=== PATIENT | female | born 1950 | race Caucasian/White ===

== ENCOUNTER 2017-01-07 01:38 | Emergency (ER) | payer MEDICARE, OTHER ==
[~2017-01-07] VITALS: Ht 160 cm; Wt 77.5 kg
[2017-01-07 01:46] VITALS: Ht 160 cm; Wt 77.5 kg
[2017-01-07] MEDS ORDERED: NPH10OT RIGHT EAR (02:37)
[2017-01-07] MEDS ORDERED: ACET325T33 PO (02:38)
--- NOTE | 2017-01-07 03:08 | ERA ---
ER Documentation Chief Complaint Date/Time DATE: 01/07/17 TIME: 03:03 Chief Complaint right ear pain, right knee pain- denies injury HPI This is a 66-year-old female with history of arthritis presenting complaining of bilateral knee pain that is worse with walking. Patient has taken ibuprofen with moderate relief. Patient has no other complaints and describes no other associated manifestations. Patient is also complaining of right ear pain that is worse when touching it. Patient denies history of trauma, change/loss of hearing, tinnitus, headache, dizziness, veronica-auricular pain, or neck stiffness. Patient has not done anything to relieve the symptoms at this time. ROS All systems reviewed and are negative except as per history of present illness. Medications Home Meds Active Scripts Acetaminophen* (Tylenol*) 325 Mg Tablet, 1 TAB PO Q8 Y for PAIN AND OR ELEVATED TEMP, #20 TAB Prov:TANA BARNEY PA-C 01/07/17 Neomycin/Polymyxin/Hydrocort* (Cortisporin* Otic) 10 Ml Susp, 4 DROP RIGHT EAR QID for 7 Days, EA Prov:TANA BARNEY PA-C 01/07/17 Allergies Allergies: Coded Allergies: No Known Allergy (Unverified , 01/07/17) PMhx/Soc History of Surgery: No Anesthesia Reaction: No Hx Neurological Disorder: No Hx Respiratory Disorders: No Hx Cardiac Disorders: No Hx Psychiatric Problems: No Hx Miscellaneous Medical Probl: No Hx Alcohol Use: No Hx Substance Use: No Hx Tobacco Use: No Smoking Status: Never smoker Physical Exam Vitals Vital Signs Date Time Temp Pulse Resp B/P Pulse Ox O2 Delivery O2 Flow Rate FiO2 01/07/17 01:46 98.2 60 20 172/77 100 Physical Exam Const: Old 66-year-old female and a wheelchair on initial presentation in no acute distress Head: Atraumatic Eyes: Normal Conjunctiva ENT: Right antihelix mildly erythematous. No warmth to touch. Mild tenderness to palpation. No discharge or marked swelling noted. No streaking. External ear canals clear and tympanic membranes visualized with good light cone reflex visualized bilaterally. Normal Nose and Mouth. Neck: Full range of motion..~ No meningismus. Resp: Clear to auscultation bilaterally Cardio: Regular rate and rhythm, no murmurs Abd: Soft, non tender, non distended. Normal bowel sounds Skin: No petechiae or rashes Back: No midline or flank tenderness Ext: Full range of motion and no pain with passive range of motion. Pain and limited range of motion secondary to pain with active range of motion. With no cyanosis, or edema Neur: Awake and alert Psych: Normal Mood and Affect Procedures/MDM Patient was evaluated for right ear discomfort presenting as described in the history and physical exam. Patient refused pain medications in the emergency department. The patients signs and symptoms are most consistent with otitis externa of left ear and chronic osteoarthritis of the knees bilaterally. The treatment will thus include outpatient Ciprodex for the ear and acetaminophen for the knees. At this time I do not suspect malignant otitis externa, hearing loss, intracranial pathology, foreign body, meningitis; septic joint, neurovascular compromise or other serious bacterial infections. I have spoke with the patient regarding their condition and future management. They have verbally responded that they understand their status and treatment plan. The patient is well-appearing, vitals are stable, and their current condition is appropriate for discharge. The patient will be given discharge instructions with return precautions. Departure Diagnosis: Primary Impression: Otitis externa of right ear Qualified Code: H60.391 - Other infective acute otitis externa of right ear Additional Impression: Arthritis Condition: Stable Patient Instructions: External Ear Infection (Adult) Additional Instructions: Follow up with your PCP within the next 1-3 days for a more thorough evaluation and a possible referral to a specialist. Return the the emergency department immediately if symptoms worsen or change. If you have any questions regarding medications, ask your pharmacist or us before you leave. If any adverse reactions occur while taking your medications, discontinue the treatment and return to the emergency department immediately. Take your medications as directed, and complete the entire course of treatment. TANA BARNEY PA-C Jan 07, 2017 03:08
== END 2017-01-07 03:21 | disposition home or self-care (01) ==
LOC: FTE 01:38
DX: H60.391 Other infective otitis externa, right ear (principal); M19.90 Unspecified osteoarthritis, unspecified site
CPT/HCPCS: 99283

== ENCOUNTER 2018-05-10 02:15 | Observation (INO) | END 2018-05-10 15:47 | disposition home or self-care (01) ==

== ENCOUNTER 2018-08-18 07:45 | Inpatient (IN) | payer MEDICARE, BC ==
[~2018-08-18] VITALS: Ht 160 cm; Wt 87.9 kg
[2018-08-18] VITALS (8 sets, daily range): BP systolic 126–141; BP diastolic 61–67; PULSE 62–84; RESP 14–20; Ht 160 cm; Wt 87.9 kg
[~2018-08-18 07:45] MED LIST: AMLO2.5T78 PO; ASPI-817 PO; HYDR12.58 PO; LORA10TA3 PO; METO25TA4 PO; NAPR-985 PO
[2018-08-18] MEDS ORDERED: SOD CHLORIDE 0.9% 500 ML IV STA (07:54)
--- NOTE | 2018-08-18 07:54 | ERD ---
ER Documentation Chief Complaint Chief Complaint HPI 68-year-old woman brought in by EMS for palpitations and tachycardia, patient is unable to tell me if she has a history of cardiac dysrhythmia. Patient complains of palpitations and discomfort to the chest, she has had no fevers or chills, no vomiting, no LOC. HPI supplemented by reviewing past medical history, speaking to EMS, and nursing staff. ROS All systems reviewed and are negative except as per history of present illness. Medications Home Meds Reported Medications Metformin* (Glucophage*) 500 Mg Tab, 500 MG PO WITH BREAKFAST DINNE, #30 TAB 08/19/18 Metoprolol Tartrate* (Lopressor*) 25 Mg Tablet, 25 MG PO BID, #60 TAB 05/10/18 Aspirin* (Aspirin* EC) 81 Mg Tablet.dr, 81 MG PO DAILY, TAB 05/10/18 Naproxen* (Naprosyn*) 500 Mg Tablet, 500 MG PO BID, TAB 05/10/18 Loratadine* (Loratadine*) 10 Mg Tablet, 10 MG PO DAILY, #30 TAB 05/10/18 Hydrochlorothiazide* (Hydrochlorothiazide*) 12.5 Mg Tablet, 12.5 MG PO BID, #60 TAB 05/10/18 Amlodipine Besylate* (Amlodipine Besylate*) 2.5 Mg Tablet, 2.5 MG PO QAM, #30 TAB 05/10/18 Allergies Allergies: Coded Allergies: No Known Allergy (Unverified , 01/07/17) PMhx/Soc CAD, CABG, hypertension, obesity, dementia, psychiatric disorder Anesthesia Reaction: No Hx Neurological Disorder: No Hx Respiratory Disorders: No Hx Cardiac Disorders: Yes (HTN ) Hx Psychiatric Problems: No Hx Miscellaneous Medical Probl: No Hx Alcohol Use: No Hx Substance Use: No Hx Tobacco Use: No FmHx Family History: No diabetes Physical Exam Vitals Vital Signs Date Temp Pulse Resp B/P (MAP) Pulse Ox O2 O2 Flow FiO2 Time Delivery Rate 08/18/18 Nasal 2 08:10 Cannula 08/18/18 98.0 165 18 116/93 99 07:53 (101) Physical Exam GENERAL: Elderly, chronically debilitated appearing woman, appears demented, afebrile HEENT: Moist mucous membranes, pink conjunctiva, no cervical spine tenderness or step-off deformities, no goiter NEURO: Alert and oriented x1, moving all extremities, able to answer simple questions and follow simple commands, pupils equal round reactive to light CARDIAC: Tachycardic and regular no murmurs rubs or gallops LUNGS: Clear bilaterally no wheezing crackles or stridor ABDOMEN: Soft nontender, no guarding, no rigidity, no rebound, no psoas sign no obturator sign. SKIN: Warm and dry to touch, no abrasions, contusions, or hematomas, no lacerations, no ecchymosis, no target lesions, and without ulcers EXTREMITIES: No clubbing cyanosis or edema, calves are bilaterally symmetrical, no Homans sign, no popliteal cord sign. Distal pulses equal and bilateral PSYCH: Bizarre affect, inappropriate Result Diagram: 08/19/1860508/19/18605 Results 24 hrs Laboratory Tests Test 08/18/18 07:57 White Blood Count 10.5 10^3/ul Red Blood Count 4.81 10^6/ul Hemoglobin 14.7 g/dl Hematocrit 42.7 % Mean Corpuscular Volume 88.8 fl Mean Corpuscular Hemoglobin 30.6 pg Mean Corpuscular Hemoglobin Concent 34.4 g/dl Red Cell Distribution Width 11.9 % Platelet Count 364 10^3/UL Mean Platelet Volume 10.9 fl Immature Granulocytes % 0.400 % Neutrophils % 54.2 % Lymphocytes % 36.5 % Monocytes % 7.8 % Eosinophils % 0.6 % Basophils % 0.5 % Nucleated Red Blood Cells % 0.0 /100WBC Immature Granulocytes # 0.040 10^3/ul Neutrophils # 5.7 10^3/ul Lymphocytes # 3.8 10^3/ul Monocytes # 0.8 10^3/ul Eosinophils # 0.1 10^3/ul Basophils # 0.1 10^3/ul Nucleated Red Blood Cells # 0.0 10^3/ul Prothrombin Time 11.7 Sec Prothrombin Time Ratio 0.9 INR International Normalized Ratio 0.85 Activated Partial Thromboplast Time 27.0 Sec Sodium Level 135 mmol/L Potassium Level 4.3 mmol/L Chloride Level 98 mmol/L Carbon Dioxide Level 21 mmol/L Anion Gap 16 Blood Urea Nitrogen 13 mg/dl Creatinine 0.58 mg/dl Est Glomerular Filtrat Rate mL/min > 60 mL/min Glucose Level 287 mg/dl Calcium Level 9.1 mg/dl Total Bilirubin 0.3 mg/dl Direct Bilirubin 0.00 mg/dl Indirect Bilirubin 0.3 mg/dl Aspartate Amino Transf (AST/SGOT) 44 IU/L Alanine Aminotransferase (ALT/SGPT) 34 IU/L Alkaline Phosphatase 125 IU/L Troponin I 0.022 ng/ml B-Type Natriuretic Peptide 683 PG/ML Total Protein 8.4 g/dl Albumin 4.2 g/dl Globulin 4.20 g/dl Albumin/Globulin Ratio 1.00 Lipase 154 U/L Current Medications Medications Dose Sig/Rajeev Start Time Status Last (Trade) Ordered Route PRN Stop Time Admin Dose Reason Admin Diltiazem 20 mg ONCE ONCE 08/18/18 DC 08/18/18 HCl IV 08:00 08/18/18 08:07 (Cardizem Iv) 08:01 Sodium 500 ml @ Q1H STAT 08/18/18 DC 08/18/18 Chloride 500 mls/hr IV 07:54 08/18/18 08:07 08:53 Aspirin 325 mg ONCE ONCE 08/18/18 DC (Aspirin) PO 08:00 08/18/18 08:01 Diltiazem 20 mg ONCE ONCE 08/18/18 DC 08/18/18 HCl IV 08:30 08/18/18 08:48 (Cardizem Iv) 08:31 Sodium 1,000 ml @ Q1H ONCE 08/18/18 DC 08/18/18 Chloride 1,000 mls/hr IV 09:00 08/18/18 08:49 09:59 Procedures/MDM IV line was established patient was placed on bus driver/monitor rhythm strip revealed a narrow complex tachycardia at 160 bpm with upright P and T waves. Patient was afebrile EKG performed, read by me revealed an atrial fibrillation with rapid ventricular rate at 164 bpm, normal axis, narrow QRS complex, no concerning ST elevations noted but ST depressions in all leads consistent with old EKG. Patient received diltiazem 20 mg IV followed by another 10 mg IV bolus for A. fib with RVR. 1 view chest x-ray performed, read by me revealed sternotomy wires, no acute infiltrates, no pneumothorax otherwise unremarkable chest x-ray. Repeat EKG performed, read by me revealed a normal sinus rhythm at 81 bpm, normal axis, narrow QRS complex, no concerning ST elevations or depressions noted. Critical Care: Time: 45 minutes, this was time separate from other billable procedures. Treatments/Evaluations: Close monitoring and treatment of unstable vital signs, cardiorespiratory, and neurologic status, while maintaining tight balance of fluid, respiratory, and cardiac interventions. Patient also received 1 L normal saline IV and was already given a full dose of aspirin by EMS. CBC and electrolytes were unremarkable, liver function tests normal, troponin negative, blood sugar slightly elevated. Patient will be admitted to telemetry setting for continued medical management and cardiology consultation. Departure Diagnosis: Primary Impression: Atrial fibrillation with RVR Condition: RENARD Khan MD Aug 18, 2018 07:54
[2018-08-18] MEDS ORDERED: DILTIAZEM 25 MG INJ IV ONE ×2 (08:00→08:30)
[2018-08-18] MEDS ORDERED: ASPIRIN 325 MG TAB PO ONE (08:00)
[2018-08-18] MEDS ORDERED: SOD CHLORIDE 0.9% 1,000 ML IV ONE (09:00)
[2018-08-18] MEDS ORDERED: DOCUSATE SODIUM 100 MG CAP PO PRN (11:30)
[2018-08-18] MEDS ORDERED: GLUCAGON 1 MG INJ IM PRN (11:30)
[2018-08-18] MEDS ORDERED: DEXTROSE 50% 50 ML SYRINGE IV PRN ×2 (11:30)
[2018-08-18] MEDS ORDERED: GLUCOSE GEL 15 GRAM TUBE BUCCAL PRN (11:30)
[2018-08-18] MEDS ORDERED: ACETAMINOPHEN 325 MG TAB PO PRN (11:30)
[2018-08-18] MEDS ORDERED: morphine 2 MG INJ IV PRN (11:30)
[2018-08-18] MEDS ORDERED: NACL 0.9% 3 ML SYG IV SCH (11:30)
[2018-08-18] MEDS ORDERED: ONDANSETRON 4 MG INJ IV PRN (11:30)
[2018-08-18] MEDS ORDERED: HYDROCODONE/APAP (5/325) TAB PO PRN (11:30)
[2018-08-18] MEDS ORDERED: ZOLPIDEM 5 MG TAB PO PRN (11:30)
[2018-08-18] MEDS ORDERED: GLUCOSE GEL 15 GRAM TUBE PO PRN ×2 (11:30)
[2018-08-18] MEDS: AMLODIPINE 2.5 MG TAB PO SCH (11:39)
[2018-08-18] MEDS: METOPROLOL 25 MG TAB PO SCH ×2 (11:39→19:49)
[2018-08-18] MEDS: LORATADINE 10 MG TAB PO SCH (11:39)
[2018-08-18] MEDS: INSULIN ASPART [NOVOLOG] 3 ML PEN SC SCH ×3 (11:50→19:59)
--- NOTE | 2018-08-18 11:53 | HP ---
Date/Time of Note Date/Time of Note DATE: 08/18/18 TIME: 11:47 Assessment/Plan VTE Prophylaxis Pharmacological prophylaxis: LMWH Lines/Catheters IV C[facility]ter Type (from [facility]): [place] [facility] Assessment/Plan Hospital Course 1. Paroxysmal A. fib with RVR-patient now in sinus rhythm Patient is status post diltiazem in the ER Patient unaware of any prior episodes of arrhythmia Cardiac consultation obtained, defer initiation of anticoagulation to cardiology 2. Diabetes Sugars currently elevated Lantus and sliding scale Follow-up an A1c 3. History of coronary disease Continue cardiac meds 4. Hypertension Continue home Prophylaxis: Lovenox Result Diagram: 08/18/18 0757 08/18/18 0757 Results 24hrs Laboratory Tests Test 08/18/18 07:57 White Blood Count 10.5 # Red Blood Count 4.81 Hemoglobin 14.7 Hematocrit 42.7 Mean Corpuscular Volume 88.8 Mean Corpuscular Hemoglobin 30.6 Mean Corpuscular Hemoglobin Concent 34.4 Red Cell Distribution Width 11.9 Platelet Count 364 Mean Platelet Volume 10.9 H Immature Granulocytes % 0.400 Neutrophils % 54.2 Lymphocytes % 36.5 Monocytes % 7.8 Eosinophils % 0.6 Basophils % 0.5 Nucleated Red Blood Cells % 0.0 Immature Granulocytes # 0.040 H Neutrophils # 5.7 Lymphocytes # 3.8 H Monocytes # 0.8 Eosinophils # 0.1 Basophils # 0.1 Nucleated Red Blood Cells # 0.0 Prothrombin Time 11.7 L Prothrombin Time Ratio 0.9 INR International Normalized Ratio 0.85 Activated Partial Thromboplast Time 27.0 Sodium Level 135 Potassium Level 4.3 Chloride Level 98 Carbon Dioxide Level 21 Anion Gap 16 H Blood Urea Nitrogen 13 Creatinine 0.58 Est Glomerular Filtrat Rate mL/min > 60 Glucose Level 287 H Calcium Level 9.1 Total Bilirubin 0.3 Direct Bilirubin 0.00 Indirect Bilirubin 0.3 Aspartate Amino Transf (AST/SGOT) 44 Alanine Aminotransferase (ALT/SGPT) 34 Alkaline Phosphatase 125 H Troponin I 0.022 B-Type Natriuretic Peptide 683 H Total Protein 8.4 H Albumin 4.2 Globulin 4.20 H Albumin/Globulin Ratio 1.00 Lipase 154 HPI/ROS Admit Date/Time Admit Date/Time Aug 18, 2018 at 09:00 Hx of Present Illness Patient is a 68-year-old female with history of coronary disease status post CABG, hypertension, diabetes likely psychiatric disorder who presents with chest and back discomfort. In the ER patient was noted to be in A. fib with RVR, patient did receive diltiazem and did did convert to sinus rhythm. Patient is unaware of any prior history of arrhythmia currently has no complaints. ROS Constitutional: no complaints, improved Eyes: no complaints ENT: no complaints Respiratory: no complaints Cardiovascular: no complaints Gastrointestinal: no complaints Genitourinary: no complaints Musculoskeletal: no complaints Skin: no complaints Neurologic: no complaints Endocrine: no complaints Lymphatic: no complaints Psychological: no complaints, nl mood/affect Immunologic: no complaints PMH/Family/Social Past Medical History As per HPI Medications Current Medications IV Flush (NS 3 ml) 3 ml PER PROTOCOL IV ; Start 08/18/18 at 11:30 Ondansetron HCl (Zofran Inj) 4 mg Q6H PRN IV NAUSEA/VOMITING; Start 08/18/18 at 11:30 Acetaminophen (Tylenol Tab) 650 mg Q6H PRN PO .PAIN 1-3 OR TEMP; Start 08/18/18 at 11:30 Acetaminophen/ Hydrocodone Bitart ([place] (5/325)) 1 tab Q6H PRN PO .MOD PAIN 4- 6; Start 08/18/18 at 11:30 Morphine Sulfate (morphine) 2 mg Q4H PRN IV .SEVERE PAIN 7-10; Start 08/18/18 at 11:30 Docusate Sodium (Colace) 100 mg Q12H PRN PO .CONSTIPATION; Start 08/18/18 at 11:30 Zolpidem Tartrate (Ambien) 5 mg QHS PRN PO .INSOMNIA; Start 08/18/18 at 11:30 Enoxaparin Sodium (Lovenox) 40 mg DAILY SC ; Start 08/19/18 at 09:00 Amlodipine Besylate (Norvasc) 2.5 mg QAM PO ; Start 08/18/18 at 11:30 Aspirin (Halfprin) 81 mg DAILY PO ; Start 08/19/18 at 09:00 Hydrochlorothiazide (Hydrochlorothiazide) 12.5 mg BID DIURETICS PO ; Start 08/18/18 at 18:00 Loratadine (Claritin) 10 mg DAILY PO ; Start 08/18/18 at 11:30 Metoprolol Tartrate (Lopressor) 25 mg BID PO ; Start 08/18/18 at 11:30 Naproxen (Naprosyn) 500 mg BID WITH MEALS PO ; Start 08/18/18 at 17:55 Diagnostic Test (Pha) (Accu-Chek) 1 ea 02 XX ; Start 08/19/18 at 02:00 Insulin Aspart (Novolog Insulin Pen) NOVOLOG *MILD* ALGORITHM WITH MEALS BEDTIME SC ; Start 08/18/18 at 11:50 Insulin Glargine (Lantus) 12 units DAILY@2000 SC ; Start 08/18/18 at 20:00 Miscellaneous Information 1 ea NOTE XX ; Start 08/18/18 at 11:30 Glucose (Glutose) 15 gm Q15M PRN PO DECREASED GLUCOSE; Start 08/18/18 at 11:30 Glucose (Glutose) 22.5 gm Q15M PRN PO DECREASED GLUCOSE; Start 08/18/18 at 11:30 Dextrose (D50w Syringe) 25 ml Q15M PRN IV DECREASED GLUCOSE; Start 08/18/18 at 1 1:30 Dextrose (D50w Syringe) 50 ml Q15M PRN IV DECREASED GLUCOSE; Start 08/18/18 at 11:30 Glucagon (Glucagen) 1 mg Q15M PRN IM DECREASED GLUCOSE; Start 08/18/18 at 11:30 Glucose (Glutose) 15 gm Q15M PRN BUCCAL DECREASED GLUCOSE; Start 08/18/18 at 11:30 Coded Allergies: No Known Allergy (Unverified , 01/07/17) Family History Significant Family History: no pertinent family hx Social History Alcohol Use: rarely Smoking Status: Never smoker Drug Use: none Exam/Review of Systems Vital Signs Vitals Vital Signs Date Temp Pulse Resp B/P (MAP) Pulse Ox O2 O2 Flow FiO2 Time Delivery Rate 08/18/18 97.9 74 14 126/62 97 Room Air 10:19 (83) 08/18/18 2 08:10 Exam Constitutional: alert, oriented Respiratory: clear to auscultation Cardiovascular: regular rate and rhythm Gastrointestinal: soft; No distended Musculoskeletal: nl extremities to inspection MARY TROY Aug 18, 2018 11:53
[2018-08-18] MEDS: NAPROXEN 500 MG TAB PO SCH (17:55)
[2018-08-18] MEDS: HYDROCHLOROTHIAZIDE 12.5 MG CAP PO SCH (18:05)
[2018-08-18] MEDS ORDERED: INSULIN GLARGINE [LANTus] (100 UNITS/ML) SYG SC SCH (20:00)
[2018-08-19] VITALS (14 sets, daily range): BP systolic 120–181; BP diastolic 64–86; PULSE 55–126; RESP 18–22
[2018-08-19] MEDS: ACCU-CHEK XX SCH (02:38)
[2018-08-19] MEDS ORDERED: INSULIN ASPART [NOVOLOG] 3 ML PEN SC ONE (03:00)
[2018-08-19] MEDS: HYDROCHLOROTHIAZIDE 12.5 MG CAP PO SCH ×2 (05:45→17:50)
[2018-08-19] MEDS: INSULIN ASPART [NOVOLOG] 3 ML PEN SC SCH ×4 (07:44→20:08)
[2018-08-19] MEDS: NAPROXEN 500 MG TAB PO SCH ×2 (08:11→17:50)
[2018-08-19] MEDS: LORATADINE 10 MG TAB PO SCH (08:11)
[2018-08-19] MEDS: METOPROLOL 25 MG TAB PO SCH ×2 (08:11→20:14)
[2018-08-19] MEDS: ASPIRIN (EC) 81 MG TAB PO SCH (08:11)
[2018-08-19] MEDS ORDERED: ENOXAPARIN 40 MG/0.4 ML SYG SC SCH (09:00)
[2018-08-19] MEDS: AMLODIPINE 2.5 MG TAB PO SCH (10:01)
[2018-08-19] MEDS ORDERED: METF-849 PO (11:14)
[2018-08-19] MEDS ORDERED: LABETALOL HCL 20MG INJ IV PRN (12:11)
--- NOTE | 2018-08-19 13:46 | CONS ---
Consultation Date/Type/Reason Admit Date/Time Aug 18, 2018 at 09:00 Type of Consult Cardiology Date/Time of Note DATE: 08/19/18 TIME: 13:45 Hx of Present Illness Jeni Esther w/ RVR - pproximal - add Eliquis - Stress test tomorrow Full note dictated # [id number] Past Medical History Home Meds Reported Medications Metformin* (Glucophage*) 500 Mg Tab, 500 MG PO WITH BREAKFAST DINNE, #30 TAB 08/19/18 Metoprolol Tartrate* (Lopressor*) 25 Mg Tablet, 25 MG PO BID, #60 TAB 05/10/18 Aspirin* (Aspirin* EC) 81 Mg Tablet.dr, 81 MG PO DAILY, TAB 05/10/18 Naproxen* (Naprosyn*) 500 Mg Tablet, 500 MG PO BID, TAB 05/10/18 Loratadine* (Loratadine*) 10 Mg Tablet, 10 MG PO DAILY, #30 TAB 05/10/18 Hydrochlorothiazide* (Hydrochlorothiazide*) 12.5 Mg Tablet, 12.5 MG PO BID, #60 TAB 05/10/18 Amlodipine Besylate* (Amlodipine Besylate*) 2.5 Mg Tablet, 2.5 MG PO QAM, #30 TAB 05/10/18 Medications Current Medications IV Flush (NS 3 ml) 3 ml PER PROTOCOL IV ; Start 08/18/18 at 11:30 Ondansetron HCl (Zofran Inj) 4 mg Q6H PRN IV NAUSEA/VOMITING; Start 08/18/18 at 11:30 Acetaminophen (Tylenol Tab) 650 mg Q6H PRN PO .PAIN 1-3 OR TEMP; Start 08/18/18 at 11:30 Acetaminophen/ Hydrocodone Bitart ([place] (5/325)) 1 tab Q6H PRN PO .MOD PAIN 4- 6 Last administered on 08/18/18at 20:27; Admin Dose 1 TAB; Start 08/18/18 at 11:30 Morphine Sulfate (morphine) 2 mg Q4H PRN IV .SEVERE PAIN 7-10; Start 08/18/18 at 11:30 Docusate Sodium (Colace) 100 mg Q12H PRN PO .CONSTIPATION; Start 08/18/18 at 11:30 Zolpidem Tartrate (Ambien) 5 mg QHS PRN PO .INSOMNIA Last administered on 08/18/18 20:02; Admin Dose 5 MG; Start 08/18/18 at 11:30 Enoxaparin Sodium (Lovenox) 40 mg DAILY SC Last administered on 08/19/18 08:14; Admin Dose 40 MG; Start 08/19/18 at 09:00 Amlodipine Besylate (Norvasc) 2.5 mg QAM PO Last administered on 08/19/18 10:0 1; Admin Dose 2.5 MG; Start 08/18/18 at 11:30 Aspirin (Halfprin) 81 mg DAILY PO Last administered on 08/19/18 08:11; Admin Dose 81 MG; Start 08/19/18 at 09:00 Hydrochlorothiazide (Hydrochlorothiazide) 12.5 mg BID DIURETICS PO Last administered on 08/19/18 05:45; Admin Dose 12.5 MG; Start 08/18/18 at 18:00 Loratadine (Claritin) 10 mg DAILY PO Last administered on 08/19/18 08:11; Admin Dose 10 MG; Start 08/18/18 at 11:30 Metoprolol Tartrate (Lopressor) 25 mg BID PO Last administered on 08/19/18 0 8:11; Admin Dose 25 MG; Start 08/18/18 at 11:30 Naproxen (Naprosyn) 500 mg BID WITH MEALS PO Last administered on 08/19/18 08:11; Admin Dose 500 MG; Start 08/18/18 at 17:55 Diagnostic Test (Pha) (Accu-Chek) 1 ea 02 XX Last administered on 08/19/18 02:38; Admin Dose 1 EA; Start 08/19/18 at 02:00 Insulin Aspart (Novolog Insulin Pen) NOVOLOG *MILD* ALGORITHM WITH MEALS BEDTIME SC Last administered on 08/19/18 11:24; Admin Dose 2 UNIT; Start 08/18/18 at 11:50 Insulin Glargine (Lantus) 12 units DAILY@2000 SC Last administered on 08/18/18 19:58; Admin Dose 12 UNITS; Start 08/18/18 at 20:00 Miscellaneous Information 1 ea NOTE XX ; Start 08/18/18 at 11:30 Glucose (Glutose) 15 gm Q15M PRN PO DECREASED GLUCOSE; Start 08/18/18 at 11:30 Glucose (Glutose) 22.5 gm Q15M PRN PO DECREASED GLUCOSE; Start 08/18/18 at 11:30 Dextrose (D50w Syringe) 25 ml Q15M PRN IV DECREASED GLUCOSE; Start 08/18/18 at 11:30 Dextrose (D50w Syringe) 50 ml Q15M PRN IV DECREASED GLUCOSE; Start 08/18/18 at 11:30 Glucagon (Glucagen) 1 mg Q15M PRN IM DECREASED GLUCOSE; Start 08/18/18 at 11:30 Glucose (Glutose) 15 gm Q15M PRN BUCCAL DECREASED GLUCOSE; Start 08/18/18 at 11:30 Labetalol HCl (Labetalol) 20 mg Q4 PRN IV sbp over 170 Last administered on 08/19/18at 12:16; Admin Dose 20 MG; Start 08/19/18 at 12:11 Allergies: Coded Allergies: No Known Allergy (Unverified , 01/07/17) Social History Alcohol Use: rarely Smoking Status: Never smoker Drug Use: none Exam/Review of Systems Vital Signs Vitals Vital Signs Date Temp Pulse Resp B/P (MAP) Pulse Ox O2 O2 Flow FiO2 Time Delivery Rate 08/19/18 77 155/76 12:38 (102) 08/19/18 97.5 22 96 Room Air 11:41 08/18/18 2 08:10 Intake and Output 08/18/18 08/18/18 08/19/18 1515:00 23:00 07:00 IntakeIntake Total 2400 ml 500 ml BalanceBalance 2400 ml 500 ml Labs Result Diagram: 08/19/18 0606 08/19/18 0606 Results 24hrs Laboratory Tests Test 08/18/18 17:13 08/18/18 19:46 08/19/18 02:30 08/19/18 06:06 Bedside Glucose 176 185 265 H White Blood Count 9.9 Red Blood Count 4.90 Hemoglobin 14.7 Hematocrit 44.3 Mean Corpuscular Volume 90.4 Mean Corpuscular 30.0 Hemoglobin Mean Corpuscular 33.2 Hemoglobin Concent Red Cell Distribution 12.2 Width Platelet Count 353 Mean Platelet Volume 10.7 H Immature Granulocytes % 0.100 Neutrophils % 24.6 L Lymphocytes % 66.0 H Monocytes % 7.0 Eosinophils % 1.7 Basophils % 0.6 Nucleated Red Blood 0.0 Cells % Immature Granulocytes # 0.010 Neutrophils # 2.4 Lymphocytes # 6.5 H Monocytes # 0.7 Eosinophils # 0.2 Basophils # 0.1 Nucleated Red Blood 0.0 Cells # Sodium Level 136 Potassium Level 3.7 Chloride Level 98 Carbon Dioxide Level 26 Anion Gap 12 Blood Urea Nitrogen 12 Creatinine 0.76 Est Glomerular Filtrat > 60 Rate mL/min Glucose Level 241 H Hemoglobin A1c 9.9 H Calcium Level 9.1 Phosphorus Level 4.0 Magnesium Level 1.9 Test 08/19/18 07:35 08/19/18 11:09 Bedside Glucose 236 H 215 Medications Medications Current Medications IV Flush (NS 3 ml) 3 ml PER PROTOCOL IV ; Start 08/18/18 at 11:30 Ondansetron HCl (Zofran Inj) 4 mg Q6H PRN IV NAUSEA/VOMITING; Start 08/18/18 at 11:30 Acetaminophen (Tylenol Tab) 650 mg Q6H PRN PO .PAIN 1-3 OR TEMP; Start 08/18/18 at 11:30 Acetaminophen/ Hydrocodone Bitart ([place] (5/325)) 1 tab Q6H PRN PO .MOD PAIN 4- 6 Last administered on 08/18/18at 20:27; Admin Dose 1 TAB; Start 08/18/18 at 11:30 Morphine Sulfate (morphine) 2 mg Q4H PRN IV .SEVERE PAIN 7-10; Start 08/18/18 at 11:30 Docusate Sodium (Colace) 100 mg Q12H PRN PO .CONSTIPATION; Start 08/18/18 at 11:30 Zolpidem Tartrate (Ambien) 5 mg QHS PRN PO .INSOMNIA Last administered on 08/18/18at 20:02; Admin Dose 5 MG; Start 08/18/18 at 11:30 Enoxaparin Sodium (Lovenox) 40 mg DAILY SC Last administered on 08/19/18 08:14; Admin Dose 40 MG; Start 08/19/18 at 09:00 Amlodipine Besylate (Norvasc) 2.5 mg QAM PO Last administered on 08/19/18 10:01; Admin Dose 2.5 MG; Start 08/18/18 at 11:30 Aspirin (Halfprin) 81 mg DAILY PO Last administered on 08/19/18 08:11; Admin Dose 81 MG; Start 08/19/18 at 09:00 Hydrochlorothiazide (Hydrochlorothiazide) 12.5 mg BID DIURETICS PO Last administered on 08/19/18 05:45; Admin Dose 12.5 MG; Start 08/18/18 at 18:00 Loratadine (Claritin) 10 mg DAILY PO Last administered on 08/19/18 08:11; Admin Dose 10 MG; Start 08/18/18 at 11:30 Metoprolol Tartrate (Lopressor) 25 mg BID PO Last administered on 08/19/18at 08:11; Admin Dose 25 MG; Start 08/18/18 at 11:30 Naproxen (Naprosyn) 500 mg BID WITH MEALS PO Last administered on 08/19/18 08:11; Admin Dose 500 MG; Start 08/18/18 at 17:55 Diagnostic Test (Pha) (Accu-Chek) 1 ea 02 XX Last administered on 08/19/18at 02:38; Admin Dose 1 EA; Start 08/19/18 at 02:00 Insulin Aspart (Novolog Insulin Pen) NOVOLOG *MILD* ALGORITHM WITH MEALS BEDTIME SC Last administered on 08/19/18at 11:24; Admin Dose 2 UNIT; Start 08/18/18 at 11:50 Insulin Glargine (Lantus) 12 units DAILY@2000 SC Last administered on 08/18/18at 19:58; Admin Dose 12 UNITS; Start 08/18/18 at 20:00 Miscellaneous Information 1 ea NOTE XX ; Start 08/18/18 at 11:30 Glucose (Glutose) 15 gm Q15M PRN PO DECREASED GLUCOSE; Start 08/18/18 at 11:30 Glucose (Glutose) 22.5 gm Q15M PRN PO DECREASED GLUCOSE; Start 08/18/18 at 11:30 Dextrose (D50w Syringe) 25 ml Q15M PRN IV DECREASED GLUCOSE; Start 08/18/18 at 11:30 Dextrose (D50w Syringe) 50 ml Q15M PRN IV DECREASED GLUCOSE; Start 08/18/18 at 11:30 Glucagon (Glucagen) 1 mg Q15M PRN IM DECREASED GLUCOSE; Start 08/18/18 at 11:30 Glucose (Glutose) 15 gm Q15M PRN BUCCAL DECREASED GLUCOSE; Start 08/18/18 at 11:30 Labetalol HCl (Labetalol) 20 mg Q4 PRN IV sbp over 170 Last administered on 08/19/18at 12:16; Admin Dose 20 MG; Start 08/19/18 at 12:11 SHERITA NARVAEZ MD Aug 19, 2018 13:46
--- NOTE | 2018-08-19 14:51 | CONS ---
DATE OF ADMISSION: 08/18/2018 DATE OF CONSULTATION: 08/19/2018 TYPE OF CONSULTATION: Cardiology. REFERRING PHYSICIAN: Mary Troy MD REASON FOR EVALUATION: Atrial fibrillation with rapid ventricular response. HISTORY OF PRESENT ILLNESS: Ms. Young is a 68-year-old woman with history of hypertension, dysli pidemia, but no known history of coronary artery disease or hypertension, who comes to the [facility] for evaluation of "lung pain" and some precordial discomfort. The patient has atrial fibrillation with rapid ventricular response with significant ST-T changes. Fortunately, the patient converted t o sinus rhythm. The patient's troponin is mildly elevated ____ which is expected with that degree of tachycardia; however given the age of 68, I think it would not be unreasonable to risk stratify her with stress test now. The patient converted to sinus rhythm. We are going to optimize her medical t herapy and provide more recommendation for her care as more information about her condition becomes a vailable. PAST MEDICAL HISTORY: 1. Hypertension. 2. Dyslipidemia. 3. History of diabetes. 4. History of obesity. ALLERGIES: NO KNOWN DRUG ALLERGIES. SOCIAL HISTORY: The patient does not smoke, does not drink, does not use any drugs. FAMILY HISTORY: Negative for sudden cardiac or premature coronary artery disease. MEDICATIONS: The patient is on: 1. Labetalol now ____. 2. Lovenox. 3. Aspirin 81 mg p.o. once a day. 4. Insulin on a sliding scale. 5. Docusate. 6. Amlodipine 2.5 mg. 7. Metoprolol tartrate 25 mg p.o. b.i.d. 8. Glucose. REVIEW OF SYSTEMS: CONSTITUTIONAL: No fevers, no chills, no recent weight changes. HEENT: No change in vision or hearing. CARDIAC: No chest pain reported. RESPIRATORY: No shortness of breath. GASTROINTESTINAL: No nausea, vomiting, diarrhea, constipation. GENITOURINARY: No dysuria, hematuria. NEUROLOGIC: No focal deficits. HEMATOLOGIC: No easy bruising. PSYCHIATRIC: No history of psychiatric illness. PHYSICAL EXAMINATION: VITAL SIGNS: Temperature is 97.5, heart rate 79, blood pressure 159/76. GENERAL: She is well-nourished woman in no acute distress, alert and oriented x3, aware of her condi tion. HEENT: Head is normocephalic, atraumatic. Eyes are anicteric. NECK: Supple. JVD is 6 cm. There is no lymphadenopathy, no thyromegaly. HEART: Regular, soft holosystolic murmur. PMI is minimally displaced. There is no S3. LUNGS: Coarse to base. ABDOMEN: Distended. GENITOURINARY: Intact. EXTREMITIES: Show clubbing, cyanosis. Trace edema. LABORATORY DATA: Sodium 136, potassium 3.7, her BUN is 12, creatinine 0.9. Hemoglobin A1c is 9.9. ASSESSMENT AND PLAN: 1. Atrial fibrillation. The patient's atrial fibrillation appears to have paroxysmal, converted to sinus. The CHADS2 score is greater than 1 because of age, hypertension, diabetes and I think she had to be fully anticoagulated unless there is a contraindication. We are going to initiate the patient on anticoagulation now. 2. Abnormal EKG. The patient has abnormal EKG with some ST-T changes especially in setting of tachy cardia. Her troponin was mildly elevated on presentation. I think it will be reasonable to stratify the patient with stress test. We will facilitate it shortly. 3. Hypertension. Blood pressure is well controlled. Continue antihypertensive medications as neede d. 4. Diabetes. Continue diabetic optimization and care as necessary. I would like to thank Dr. Troy for referring this patient for my evaluation. Dictated By: SHERITA NARVAEZ MD ML/NTS Conf#: [id number] DID#: [id number] CC: SOPHIE CISNEROS MD; MARY TROY MD;*End*
--- NOTE | 2018-08-19 18:12 | PN ---
Date/Time of Note Date/Time of Note DATE: 08/19/18 TIME: 18:05 Assessment/Plan VTE Prophylaxis Risk score (from Nsg)>0 risk: 2 Pharmacological prophylaxis: apixaban Lines/Catheters IV Catheter Type (from Nrsg): [place] Assessment/Plan Hospital Course 1. Paroxysmal A. fib with RVR-patient now in sinus rhythm Patient is status post diltiazem in the ER Patient unaware of any prior episodes of arrhythmia Cardiac consultation obtained, Eliquis started by cardiology, continue metoprolol 2. Diabetes-uncontrolled A1c 9.9 Sugars currently elevated Increase Lantus dose, start mealtime insulin, continue sliding scale 3. EKG changes with ST-T changes Cardiology consultation appreciated, plan is for stress test tomorrow Continue cardiac meds 4. Hypertension Continue home Thiazide, Norvasc and beta-gilmer 5. History of coronary disease Continue aspirin and beta-gilmer, start statin Prophylaxis: Eliquis DC planning: Stress test tomorrow, anticipate DC tomorrow if stress test negative Result Diagram: 08/19/1860508/19/18 0606 Results 24hrs Laboratory Tests Test 08/18/18 19:46 08/19/18 02:30 08/19/18 06:06 08/19/18 07:35 Bedside Glucose 185 265 H 236 H White Blood Count 9.9 Red Blood Count 4.90 Hemoglobin 14.7 Hematocrit 44.3 Mean Corpuscular Volume 90.4 Mean Corpuscular 30.0 Hemoglobin Mean Corpuscular 33.2 Hemoglobin Concent Red Cell Distribution 12.2 Width Platelet Count 353 Mean Platelet Volume 10.7 H Immature Granulocytes % 0.100 Neutrophils % 24.6 L Lymphocytes % 66.0 H Monocytes % 7.0 Eosinophils % 1.7 Basophils % 0.6 Nucleated Red Blood 0.0 Cells % Immature Granulocytes # 0.010 Neutrophils # 2.4 Lymphocytes # 6.5 H Monocytes # 0.7 Eosinophils # 0.2 Basophils # 0.1 Nucleated Red Blood 0.0 Cells # Sodium Level 136 Potassium Level 3.7 Chloride Level 98 Carbon Dioxide Level 26 Anion Gap 12 Blood Urea Nitrogen 12 Creatinine 0.76 Est Glomerular Filtrat > 60 Rate mL/min Glucose Level 241 H Hemoglobin A1c 9.9 H Calcium Level 9.1 Phosphorus Level 4.0 Magnesium Level 1.9 Test 08/19/18 11:09 08/19/18 14:49 08/19/18 17:31 Bedside Glucose 215 353 H Lab Scanned Report LAB Subjective 24 Hr Interval Summary Constitutional: no complaints Exam/Review of Systems Exam Vitals Vital Signs Date Temp Pulse Resp B/P (MAP) Pulse Ox O2 O2 Flow FiO2 Time Delivery Rate 08/19/18 75 16:00 08/19/18 97.9 22 149/69 96 Room Air 15:41 (95) 08/18/18 2 08:10 Intake and Output 08/18/18 08/18/18 08/19/18 1515:00 23:00 07:00 IntakeIntake Total 2400 ml 500 ml BalanceBalance 2400 ml 500 ml Constitutional: alert, oriented Respiratory: clear to auscultation Cardiovascular: regular rate and rhythm Gastrointestinal: soft; No distended Musculoskeletal: nl extremities to inspection Results Results 24hrs Laboratory Tests Test 08/18/18 19:46 08/19/18 02:30 08/19/18 06:06 08/19/18 07:35 Bedside Glucose 185 265 H 236 H White Blood Count 9.9 Red Blood Count 4.90 Hemoglobin 14.7 Hematocrit 44.3 Mean Corpuscular Volume 90.4 Mean Corpuscular 30.0 Hemoglobin Mean Corpuscular 33.2 Hemoglobin Concent Red Cell Distribution 12.2 Width Platelet Count 353 Mean Platelet Volume 10.7 H Immature Granulocytes % 0.100 Neutrophils % 24.6 L Lymphocytes % 66.0 H Monocytes % 7.0 Eosinophils % 1.7 Basophils % 0.6 Nucleated Red Blood 0.0 Cells % Immature Granulocytes # 0.010 Neutrophils # 2.4 Lymphocytes # 6.5 H Monocytes # 0.7 Eosinophils # 0.2 Basophils # 0.1 Nucleated Red Blood 0.0 Cells # Sodium Level 136 Potassium Level 3.7 Chloride Level 98 Carbon Dioxide Level 26 Anion Gap 12 Blood Urea Nitrogen 12 Creatinine 0.76 Est Glomerular Filtrat > 60 Rate mL/min Glucose Level 241 H Hemoglobin A1c 9.9 H Calcium Level 9.1 Phosphorus Level 4.0 Magnesium Level 1.9 Test 08/19/18 11:09 08/19/18 14:49 08/19/18 17:31 Bedside Glucose 215 353 H Lab Scanned Report LAB Medications Medication Current Medications IV Flush (NS 3 ml) 3 ml PER PROTOCOL IV ; Start 08/18/18 at 11:30 Ondansetron HCl (Zofran Inj) 4 mg Q6H PRN IV NAUSEA/VOMITING; Start 08/18/18 at 11:30 Acetaminophen (Tylenol Tab) 650 mg Q6H PRN PO .PAIN 1-3 OR TEMP; Start 08/18/18 at 11:30 Acetaminophen/ Hydrocodone Bitart ([place] (5/325)) 1 tab Q6H PRN PO .MOD PAIN 4- 6 Last administered on 08/18/18 20:27; Admin Dose 1 TAB; Start 08/18/18 at 11:30 Morphine Sulfate (morphine) 2 mg Q4H PRN IV .SEVERE PAIN 7-10; Start 08/18/18 at 11:30 Docusate Sodium (Colace) 100 mg Q12H PRN PO .CONSTIPATION; Start 08/18/18 at 11:30 Zolpidem Tartrate (Ambien) 5 mg QHS PRN PO .INSOMNIA Last administered on 08/18/18 20:02; Admin Dose 5 MG; Start 08/18/18 at 11:30 Amlodipine Besylate (Norvasc) 2.5 mg QAM PO Last administered on 08/19/18 10:01; Admin Dose 2.5 MG; Start 08/18/18 at 11:30 Aspirin (Halfprin) 81 mg DAILY PO Last administered on 08/19/18 08:11; Admin Dose 81 MG; Start 08/19/18 at 09:00 Hydrochlorothiazide (Hydrochlorothiazide) 12.5 mg BID DIURETICS PO Last administered on 08/19/18 17:50; Admin Dose 12.5 MG; Start 08/18/18 at 18:00 Loratadine (Claritin) 10 mg DAILY PO Last administered on 08/19/18 08:11; Admin Dose 10 MG; Start 08/18/18 at 11:30 Metoprolol Tartrate (Lopressor) 25 mg BID PO Last administered on 08/19/18 08:11; Admin Dose 25 MG; Start 08/18/18 at 11:30 Naproxen (Naprosyn) 500 mg BID WITH MEALS PO Last administered on 08/19/18 17:50; Admin Dose 500 MG; Start 08/18/18 at 17:55 Diagnostic Test (Pha) (Accu-Chek) 1 ea 02 XX Last administered on 3/3/19at 02:38; Admin Dose 1 EA; Start 08/19/18 at 02:00 Insulin Aspart (Novolog Insulin Pen) NOVOLOG *MILD* ALGORITHM WITH MEALS BEDTIME SC Last administered on 08/19/18at 17:34; Admin Dose 7 UNIT; Start 08/18/18 at 11:50 Insulin Glargine (Lantus) 12 units DAILY@2000 SC Last administered on 08/18/18at 19:58; Admin Dose 12 UNITS; Start 08/18/18 at 20:00 Miscellaneous Information 1 ea NOTE XX ; Start 08/18/18 at 11:30 Glucose (Glutose) 15 gm Q15M PRN PO DECREASED GLUCOSE; Start 08/18/18 at 11:30 Glucose (Glutose) 22.5 gm Q15M PRN PO DECREASED GLUCOSE; Start 08/18/18 at 11:30 Dextrose (D50w Syringe) 25 ml Q15M PRN IV DECREASED GLUCOSE; Start 08/18/18 at 11:30 Dextrose (D50w Syringe) 50 ml Q15M PRN IV DECREASED GLUCOSE; Start 08/18/18 at 11:30 Glucagon (Glucagen) 1 mg Q15M PRN IM DECREASED GLUCOSE; Start 08/18/18 at 11:30 Glucose (Glutose) 15 gm Q15M PRN BUCCAL DECREASED GLUCOSE; Start 08/18/18 at 11:30 Labetalol HCl (Labetalol) 20 mg Q4 PRN IV sbp over 170 Last administered on 08/19/18at 12:16; Admin Dose 20 MG; Start 08/19/18 at 12:11 Apixaban (Eliquis) 5 mg BID PO ; Start 08/20/18 at 09:00 MARY TROY Aug 19, 2018 18:12
[2018-08-19] MEDS ORDERED: DIPHENHYDRAMINE 25 MG CAP PO PRN (18:30)
[2018-08-19] MEDS ORDERED: INSULIN GLARGINE [LANTus] (100 UNITS/ML) SYG SC SCH (20:00)
[2018-08-19] MEDS ORDERED: ATORVASTATIN 20 MG TAB PO SCH (21:00)
[2018-08-20] VITALS (9 sets, daily range): BP systolic 124–165; BP diastolic 60–76; PULSE 55–114; RESP 16–19
[2018-08-20] MEDS: ACCU-CHEK XX SCH (02:30)
[2018-08-20] MEDS: HYDROCHLOROTHIAZIDE 12.5 MG CAP PO SCH (05:00)
[2018-08-20] MEDS: INSULIN ASPART [NOVOLOG] 3 ML PEN SC SCH (07:46)
[2018-08-20] MEDS ORDERED: INSULIN ASPART [NOVOLOG] 3 ML PEN SC SCH (07:55)
[2018-08-20] MEDS: NAPROXEN 500 MG TAB PO SCH (07:55)
[2018-08-20] MEDS: LORATADINE 10 MG TAB PO SCH (09:00)
[2018-08-20] MEDS: AMLODIPINE 2.5 MG TAB PO SCH (09:00)
[2018-08-20] MEDS ORDERED: APIXABAN 5 MG TABLET PO SCH (09:00)
[2018-08-20] MEDS: METOPROLOL 25 MG TAB PO SCH (09:00)
[2018-08-20] MEDS: ASPIRIN (EC) 81 MG TAB PO SCH (09:00)
--- NOTE | 2018-08-20 10:49 | PN ---
Date/Time of Note Date/Time of Note DATE: 08/20/18 TIME: 10:48 Assessment/Plan VTE Prophylaxis Risk score (from Ns)>0 risk: 2 SCD applied (from Nsg): Yes Pharmacological prophylaxis: apixaban Lines/Catheters IV Catheter Type (from Nrs): Saline Lock Assessment/Plan Hospital Course SUBJECTIVE:Walking in unit, no cp/palpiattion/sob/n/v OBJECTIVE: Vital signs-see below PHYSICAL EXAM: Constitutional: Well-developed, adequately built, lying in bed comfortably. Psych: nl mood/affect, no complaints Head: atraumatic, normocephalic Eyes: nl conjunctiva, nl sclera ENMT: mucosa pink and moist, nl external ears & nose Neck: non-tender, supple Respiratory: clear to auscultation, normal air movement Cardiovascular: nl pulses, regular rate and rhythm Gastrointestinal: non-tender, soft, bowel sounds active in all 4 quadrants. Musculoskeletal/extremities: nl extremities to inspection, motor strength equal bilaterally, no focal deficit. Normal pulses,no cyanosis, no edema. Neurological: Alert oriented 3,nl speech, nl strength Skin: nl turgor ASSESSMENT/PLAN:68-yo f,w/htn,dyslipidemia, here w/palpitation, found to have AFIB/RVR 1. Paroxysmal A. fib with RVR -Converted to normal sinus rhythm. -Continue metoprolol. -Anticoagulation/Eliquis recommended by cardiology which patient kept refusing. 2.DMII A1c 9.9 Increase Lantus to 20 units. Add Tradjenta. Continue sliding scale/pre-meal insulin. 3.Hypertension Continue home Thiazide, Norvasc and beta-gilmer 4. Hypercholesterolemia. -Continue high intensity statin. Prophylaxis: Eliquis (please note that patient has been refusing the medication and she was educated on complications including permanent disability/ from not taking her anticoagulation and she verbalized understanding.) DC planning:Anticipate DC if stress test negative Patient was seen in collaboration with Result Diagram: 08/19/18 0606 08/19/18 0606 Results 24hrs Laboratory Tests Test 08/19/18 11:09 08/19/18 14:49 08/19/18 17:31 08/19/18 20:04 Bedside Glucose 215 353 H 268 H Lab Scanned Report LAB Test 08/20/18 02:19 08/20/18 05:45 08/20/18 07:45 08/20/18 08:37 Bedside Glucose 234 H 215 Triglycerides Level 176 H Cholesterol Level 227 H LDL Cholesterol, 156 Calculated HDL Cholesterol 36 Cholesterol/HDL Ratio 6.3 Free Thyroxine Index 3.26 Thyroxine (T4) 10.2 Triiodothyronine (T3) 32.0 Uptake Troponin I 0.091 Exam/Review of Systems Exam Vitals Vital Signs Date Temp Pulse Resp B/P (MAP) Pulse Ox O2 O2 Flow FiO2 Time Delivery Rate 08/20/18 66 08:26 08/20/18 97.9 16 124/60 97 07:12 (81) 08/20/18 Room Air 04:00 08/18/18 2 08:10 Intake and Output 08/19/18 08/19/18 08/20/18 1515:00 23:00 07:00 IntakeIntake Total 780 ml 400 ml BalanceBalance 780 ml 400 ml Results Results 24hrs Laboratory Tests Test 08/19/18 11:09 08/19/18 14:49 08/19/18 17:31 08/19/18 20:04 Bedside Glucose 215 353 H 268 H Lab Scanned Report LAB Test 08/20/18 02:19 08/20/18 05:45 08/20/18 07:45 08/20/18 08:37 Bedside Glucose 234 H 215 Triglycerides Level 176 H Cholesterol Level 227 H LDL Cholesterol, 156 Calculated HDL Cholesterol 36 Cholesterol/HDL Ratio 6.3 Free Thyroxine Index 3.26 Thyroxine (T4) 10.2 Triiodothyronine (T3) 32.0 Uptake Troponin I 0.091 Medications Medication Current Medications IV Flush (NS 3 ml) 3 ml PER PROTOCOL IV ; Start 08/18/18 at 11:30 Ondansetron HCl (Zofran Inj) 4 mg Q6H PRN IV NAUSEA/VOMITING; Start 08/18/18 at 11:30 Acetaminophen (Tylenol Tab) 650 mg Q6H PRN PO .PAIN 1-3 OR TEMP; Start 08/18/18 at 11:30 Acetaminophen/ Hydrocodone Bitart ([place] (5/325)) 1 tab Q6H PRN PO .MOD PAIN 4- 6 Last administered on 08/18/18at 20:27; Admin Dose 1 TAB; Start 08/18/18 at 11:30 Morphine Sulfate (morphine) 2 mg Q4H PRN IV .SEVERE PAIN 7-10; Start 08/18/18 at 11:30 Docusate Sodium (Colace) 100 mg Q12H PRN PO .CONSTIPATION; Start 08/18/18 at 11:30 Zolpidem Tartrate (Ambien) 5 mg QHS PRN PO .INSOMNIA Last administered on 08/18/18 20:02; Admin Dose 5 MG; Start 08/18/18 at 11:30 Amlodipine Besylate (Norvasc) 2.5 mg QAM PO Last administered on 08/19/18 10:01; Admin Dose 2.5 MG; Start 08/18/18 at 11:30 Aspirin (Halfprin) 81 mg DAILY PO Last administered on 08/19/18 08:11; Admin Dose 81 MG; Start 08/19/18 at 09:00 Hydrochlorothiazide (Hydrochlorothiazide) 12.5 mg BID DIURETICS PO Last administered on 08/19/18 17:50; Admin Dose 12.5 MG; Start 08/18/18 at 18:00 Loratadine (Claritin) 10 mg DAILY PO Last administered on 08/19/18 08:11; Admin Dose 10 MG; Start 08/18/18 at 11:30 Metoprolol Tartrate (Lopressor) 25 mg BID PO Last administered on 08/19/18 20:14; Admin Dose 25 MG; Start 08/18/18 at 11:30 Naproxen (Naprosyn) 500 mg BID WITH MEALS PO Last administered on 08/19/18 17:50; Admin Dose 500 MG; Start 08/18/18 at 17:55 Diagnostic Test (Pha) (Accu-Chek) 1 ea 02 XX Last administered on 08/20/18 02:30; Admin Dose 1 EA; Start 08/19/18 at 02:00 Insulin Aspart (Novolog Insulin Pen) NOVOLOG *MILD* ALGORITHM WITH MEALS BEDTIME SC Last administered on 08/19/18 20:08; Admin Dose 3 UNIT; Start 08/18/18 at 11:50 Miscellaneous Information 1 ea NOTE XX ; Start 08/18/18 at 11:30 Glucose (Glutose) 15 gm Q15M PRN PO DECREASED GLUCOSE; Start 08/18/18 at 11:30 Glucose (Glutose) 22.5 gm Q15M PRN PO DECREASED GLUCOSE; Start 08/18/18 at 11:30 Dextrose (D50w Syringe) 25 ml Q15M PRN IV DECREASED GLUCOSE; Start 08/18/18 at 11:30 Dextrose (D50w Syringe) 50 ml Q15M PRN IV DECREASED GLUCOSE; Start 08/18/18 at 11:30 Glucagon (Glucagen) 1 mg Q15M PRN IM DECREASED GLUCOSE; Start 08/18/18 at 11:30 Glucose (Glutose) 15 gm Q15M PRN BUCCAL DECREASED GLUCOSE; Start 08/18/18 at 11:30 Labetalol HCl (Labetalol) 20 mg Q4 PRN IV sbp over 170 Last administered on 08/19/18at 12:16; Admin Dose 20 MG; Start 08/19/18 at 12:11 Apixaban (Eliquis) 5 mg BID PO ; Start 08/20/18 at 09:00 Insulin Glargine (Lantus) 16 units DAILY@2000 SC Last administered on 08/19/18at 20:38; Admin Dose 16 UNITS; Start 08/19/18 at 20:00 Insulin Aspart (Novolog Insulin Pen) 4 unit WITH MEALS SC ; Start 08/20/18 at 07:55 Atorvastatin Calcium (Lipitor) 20 mg HS PO Last administered on 08/19/18at 20:13; Admin Dose 20 MG; Start 08/19/18 at 21:00 Diphenhydramine HCl (Benadryl) 25 mg HS PRN PO INSOMNIA Last administered on 08/19/18at 20:13; Admin Dose 25 MG; Start 08/19/18 at 18:30 JANAE GILL NP Aug 20, 2018 10:49
[2018-08-20] MEDS ORDERED: LINAGLIPTIN 5 MG TABLET PO SCH (11:00)
--- NOTE | 2018-08-20 12:56 | CONS ---
Assessment/Plan Assessment/Plan Hospital Course (Demo Recall) IMP: 1.PAF-in SR at this time 2.chest qzdd-ogalqhkm-afy trop x 2 3.HTN 4.DM 5.HL Recc: -Tele -Continue BB/norvasc as patient will comply with -Continue eliquis for elevted CHADS/vasc as patient will comply -Lexiscan stress test today and if no ischemia ok for d/c from cardiac standpoint Consultation Date/Type/Reason Admit Date/Time Aug 18, 2018 at 09:00 Initial Consult Date 08/19/18 Type of Consult Cardiology Reason for Consultation chest pain/AF Requesting Provider: MARY TROY Date/Time of Note DATE: 08/20/18 TIME: 12:53 Exam/Review of Systems Vital Signs Vitals Vital Signs Date Temp Pulse Resp B/P (MAP) Pulse Ox O2 O2 Flow FiO2 Time Delivery Rate 08/20/18 98.0 77 16 132/73 95 11:23 (92) 08/20/18 Room Air 04:00 08/18/18 2 08:10 Intake and Output 08/19/18 08/19/18 08/20/18 1515:00 23:00 07:00 IntakeIntake Total 780 ml 400 ml BalanceBalance 780 ml 400 ml Exam Exam Review of Systems: CONSTITUTIONAL: No fevers, chills. PULMONARY: No sob CARDIOVASCULAR: No chest pain/palpitations GASTROINTESTINAL: No nausea/vomiting. GENITOURINARY: No hematuria/dysuria. MUSCULOSKELETAL: No myagias/arthalgias. PSYCHIATRIC: The patient denies depression. NEUROLOGIC: No weakness Constitutional: alert Psych: no complaints Head: normocephalic ENMT: mucosa pink and moist Neck: supple, jvd (8 cm water) Respiratory: clear to auscultation Cardiovascular: regular rate and rhythm Gastrointestinal: soft, non-tender Musculoskeletal: muscle tone (normal) Extremities: edema (none) Neurological: other (No focal deficits) Labs Result Diagram: 08/19/1860508/19/18605 Results 24hrs Laboratory Tests Test 08/19/18 14:49 08/19/18 17:31 08/19/18 20:04 08/20/18 02:19 Lab Scanned Report LAB Bedside Glucose 353 H 268 H 234 H Test 08/20/18 05:45 08/20/18 07:45 08/20/18 08:37 Triglycerides Level 176 H Cholesterol Level 227 H LDL Cholesterol, 156 Calculated HDL Cholesterol 36 Cholesterol/HDL Ratio 6.3 Free Thyroxine Index 3.26 Thyroxine (T4) 10.2 Triiodothyronine (T3) 32.0 Uptake Bedside Glucose 215 Troponin I 0.091 Medications Medications Current Medications IV Flush (NS 3 ml) 3 ml PER PROTOCOL IV ; Start 08/18/18 at 11:30 Ondansetron HCl (Zofran Inj) 4 mg Q6H PRN IV NAUSEA/VOMITING; Start 08/18/18 at 11:30 Acetaminophen (Tylenol Tab) 650 mg Q6H PRN PO .PAIN 1-3 OR TEMP; Start 08/18/18 at 11:30 Acetaminophen/ Hydrocodone Bitart ([place] (5/325)) 1 tab Q6H PRN PO .MOD PAIN 4- 6 Last administered on 08/18/18 20:27; Admin Dose 1 TAB; Start 08/18/18 at 11:30 Morphine Sulfate (morphine) 2 mg Q4H PRN IV .SEVERE PAIN 7-10; Start 08/18/18 at 11:30 Docusate Sodium (Colace) 100 mg Q12H PRN PO .CONSTIPATION; Start 08/18/18 at 11:30 Zolpidem Tartrate (Ambien) 5 mg QHS PRN PO .INSOMNIA Last administered on 08/18/18 20:02; Admin Dose 5 MG; Start 08/18/18 at 11:30 Amlodipine Besylate (Norvasc) 2.5 mg QAM PO Last administered on 08/19/18 10:01; Admin Dose 2.5 MG; Start 08/18/18 at 11:30 Aspirin (Halfprin) 81 mg DAILY PO Last administered on 08/19/18 08:11; Admin Dose 81 MG; Start 08/19/18 at 09:00 Hydrochlorothiazide (Hydrochlorothiazide) 12.5 mg BID DIURETICS PO Last adm inistered on 08/19/18 17:50; Admin Dose 12.5 MG; Start 08/18/18 at 18:00 Loratadine (Claritin) 10 mg DAILY PO Last administered on 08/19/18 08:11; Admin Dose 10 MG; Start 08/18/18 at 11:30 Metoprolol Tartrate (Lopressor) 25 mg BID PO Last administered on 08/19/18at 20:14; Admin Dose 25 MG; Start 08/18/18 at 11:30 Naproxen (Naprosyn) 500 mg BID WITH MEALS PO Last administered on 08/19/18at 17:50; Admin Dose 500 MG; Start 08/18/18 at 17:55 Diagnostic Test (Pha) (Accu-Chek) 1 ea 02 XX Last administered on 08/20/18at 02:30; Admin Dose 1 EA; Start 08/19/18 at 02:00 Insulin Aspart (Novolog Insulin Pen) NOVOLOG *MILD* ALGORITHM WITH MEALS BEDTIME SC Last administered on 08/19/18at 20:08; Admin Dose 3 UNIT; Start 08/18/18 at 11:50 Miscellaneous Information 1 ea NOTE XX ; Start 08/18/18 at 11:30 Glucose (Glutose) 15 gm Q15M PRN PO DECREASED GLUCOSE; Start 08/18/18 at 11:30 Glucose (Glutose) 22.5 gm Q15M PRN PO DECREASED GLUCOSE; Start 08/18/18 at 11:30 Dextrose (D50w Syringe) 25 ml Q15M PRN IV DECREASED GLUCOSE; Start 08/18/18 at 11:30 Dextrose (D50w Syringe) 50 ml Q15M PRN IV DECREASED GLUCOSE; Start 08/18/18 at 11:30 Glucagon (Glucagen) 1 mg Q15M PRN IM DECREASED GLUCOSE; Start 08/18/18 at 11:30 Glucose (Glutose) 15 gm Q15M PRN BUCCAL DECREASED GLUCOSE; Start 08/18/18 at 11:30 Labetalol HCl (Labetalol) 20 mg Q4 PRN IV sbp over 170 Last administered on 08/19/18at 12:16; Admin Dose 20 MG; Start 08/19/18 at 12:11 Apixaban (Eliquis) 5 mg BID PO ; Start 08/20/18 at 09:00 Insulin Aspart (Novolog Insulin Pen) 4 unit WITH MEALS SC ; Start 08/20/18 at 07:55 Atorvastatin Calcium (Lipitor) 20 mg HS PO Last administered on 08/19/18at 20:13; Admin Dose 20 MG; Start 08/19/18 at 21:00 Diphenhydramine HCl (Benadryl) 25 mg HS PRN PO INSOMNIA Last administered on 08/19/18at 20:13; Admin Dose 25 MG; Start 08/19/18 at 18:30 Insulin Glargine (Lantus) 20 units DAILY@2000 SC ; Start 08/20/18 at 20:00 Linagliptin (Tradjenta) 5 mg DAILY PO ; Start 08/20/18 at 11:00 SOPHIE CISNEROS Aug 20, 2018 12:56
[2018-08-20] MEDS ORDERED: REGADENOSON 0.4 MG/5 ML SYG ONE (13:12)
--- NOTE | 2018-08-20 14:35 | PDOCDIS ---
Discharge Instructions CONDITION [id number] Patient Condition: [id number] Stable HOME CARE INSTRUCTIONS: [id number] Your diet recommendation is: [id number] Normal heart rate controlled/low-cholesterol diet. FOLLOW UP/APPOINTMENTS Follow-up Plan Follow-up with primary care physician in 1 week JANAE GILL NP Aug 20, 2018 14:35
[2018-08-20] MEDS ORDERED: METF-849 PO (14:40)
[2018-08-20] MEDS ORDERED: LINA5TAB PO (14:40)
[2018-08-20] MEDS ORDERED: APIX5TAB PO (14:40)
[2018-08-20] MEDS ORDERED: ATOR20TA65 PO (14:40)
--- NOTE | 2018-08-20 14:48 | DS ---
Date/Time of Note Date/Time of Note DATE: 08/20/18 TIME: 14:47 Discharge Summary Admission/Discharge Info Admit Date/Time Aug 18, 2018 at 09:00 Discharge Date/Time Discharge Diagnosis 1. Paroxysmal A. fib with RVR. Converted to sinus. 2.DMII 3.Hypertension 4. Hypercholesterolemia. Patient Condition: Stable Consults Dr. Knapp, cardiology Procedures 08/20/2018. Lexiscan stress test. IMPRESSION: 1. Negative myocardial perfusion scan. 2. There is no evidence for reversible ischemia. 3. Normal wall motion with normal ejection fraction of 68%. Hospital Course 68-yo f,w/htn,dyslipidemia, here w/palpitation, found to have AFIB/RVR... Patient converted to normal sinus rhythm and she was continued on oral beta- blockers. Patient had cardiology evaluation and recommended Eliquis. Patient had negative troponin. She also underwent Lexiscan stress test, negative for any reversible ischemia. Ejection fraction 68%. Patient was continued on insulin for underlying diabetes. Her A1c was 9.2. She was counseled on diet. During the course of hospitalization, patient kept refusing medications including Eliquis. She was consult on the importance of taking medications and anticoagulation and the complications including permanent disability/ from not taking these medications and she verbalized understanding, however she continued to refuse them. At this time, no further cardiology inpatient workup indicated and patient is medically stable from a cardiac standpoint. She was recommended to increase metformin to 1000 mg with addition of Tradjenta for diabetes control on discharge. Patient has Medicare a and B as such there is no concern regarding her Eliquis eligibility and Tradjenta eligibility. Approximately 60 m spent on coordinating the discharge on this patient. Patient was seen in collaboration with Dr. Maradiaga. Home Meds Active Scripts Linagliptin (TRADJENTA) 5 Mg Tablet, 5 MG PO DAILY, #30 TAB Prov:GILL,JANAE V. ENERGY SALES CONSULTANT 08/20/18 Atorvastatin Calcium (Atorvastatin Calcium) 20 Mg Tablet, 20 MG PO HS, #30 TAB Prov:GILL,JANAE V. ENERGY SALES CONSULTANT 08/20/18 Apixaban* (Eliquis*) 5 Mg Tablet, 5 MG PO BID, #60 TAB Prov:GILL,JANAE V. ENERGY SALES CONSULTANT 08/20/18 Metformin* (Glucophage*) 500 Mg Tab, 1000 MG PO WITH BREAKFAST DINNE, #60 TAB Prov:JANAE GILL V. ENERGY SALES CONSULTANT 08/20/18 Reported Medications Metoprolol Tartrate* (Lopressor*) 25 Mg Tablet, 25 MG PO BID, #60 TAB 05/10/18 Aspirin* (Aspirin* EC) 81 Mg Tablet.dr, 81 MG PO DAILY, TAB 05/10/18 Naproxen* (Naprosyn*) 500 Mg Tablet, 500 MG PO BID, TAB 05/10/18 Loratadine* (Loratadine*) 10 Mg Tablet, 10 MG PO DAILY, #30 TAB 05/10/18 Hydrochlorothiazide* (Hydrochlorothiazide*) 12.5 Mg Tablet, 12.5 MG PO BID, #60 TAB 05/10/18 Amlodipine Besylate* (Amlodipine Besylate*) 2.5 Mg Tablet, 2.5 MG PO QAM, #30 TAB 05/10/18 Follow-up Plan Follow-up with primary care physician in 1 week Primary Care Provider Not On Staff Doctor Pending Labs Laboratory Tests Test 08/19/18 14:49 08/19/18 17:31 08/19/18 20:04 08/20/18 02:19 Lab Scanned LAB [id number] Report Bedside 353 268 234 Glucose mg/dL (70-220) mg/dL (70-220) mg/dL (70-220) Test 08/20/18 05:45 08/20/18 07:45 08/20/18 08:37 Triglycerides 176 Level mg/dl (0-149) Cholesterol 227 Level mg/dl (100-200) LDL 156 mg/dl Cholesterol, Calculated HDL 36 Cholesterol mg/dl (33-92) Cholesterol/HDL 6.3 RATIO Ratio Free Thyroxine 3.26 Index ug/ml (0.65-3.8 9) Thyroxine (T4) 10.2 ug/dl (5.5-11.0 ) Triiodothyronin 32.0 e (T3) Uptake % (23.5-40.5) Bedside 215 Glucose mg/dL (70-220) Troponin I 0.091 ng/ml (0.000-0 .120) JANAE GILL NP Aug 20, 2018 14:48
--- NOTE | 2018-08-20 15:00 | CARRPT ---
DATE OF PROCEDURE: 08/20/2018 TYPE OF PROCEDURE: Lexiscan Cardiolite stress test, electrocardiogram portion. REASON FOR STRESS TESTING: Chest pain, assess for ischemia. BASELINE VITAL SIGNS AND ELECTROCARDIOGRAM: Pulse 70, blood pressure 151/54. Electrocardiogram reve als normal sinus rhythm, rate of 70 with normal axis, voltage criteria for left ventricular hypertrop hy with lateral T-wave inversion and secondary repolarization abnormalities, possible superimposed is chemic changes. DESCRIPTION OF PROCEDURE: The patient underwent standard Lexiscan infusion protocol over 10 seconds followed by radiolabeled tracer. The patient's test was stopped to complete the protocol. Maximal a chieved blood pressure during the test was 164/68. Maximum heart rate during the test was 90. ELECTROCARDIOGRAM FINDINGS: The patient did not develop any new Lexiscan-induced ST or T-wave change s from baseline abnormalities. The patient had occasional PVCs during stress testing. SYMPTOMS: The patient had no complaints of chest pain, shortness breath during stress testing, mild flushing which resolved in recovery. IMPRESSION: 1. No Lexiscan-induced ST or T-wave changes from baseline abnormalities diagnostic of cardiac ischem ia. 2. No complaints of chest pain or shortness of breath during stress testing. 3. Positive premature ventricular contractions during stress testing. 4. Report of nuclear images to follow in separate dictation. Dictated By: SOPHIE PERDOMO/OLIVE Conf#: [id number] DID#: [id number] CC: MARY TROY MD; JANAE GILL SALES AND MARKETING DIRECTOR;*EndCC*
[2018-08-20] MEDS ORDERED: INSULIN GLARGINE [LANTus] (100 UNITS/ML) SYG SC SCH (20:00)
== END 2018-08-20 16:00 | disposition home or self-care (01) | DRG 310 ==
LOC: E/R 07:45 → TEL 09:00
PROVIDERS: ADMIT Internal Medicine; ATTEND Internal Medicine
DX: I48.0 Paroxysmal atrial fibrillation (principal); E11.65 Type 2 diabetes mellitus with hyperglycemia; I10 Essential (primary) hypertension; Z68.34 Body mass index [BMI] 34.0-34.9, adult; E78.00 Pure hypercholesterolemia, unspecified; R07.9 Chest pain, unspecified; Z95.1 Presence of aortocoronary bypass graft
CPT/HCPCS: 36415; 71045; 78452; 80048; 80053; 80061; 82962; 83036; 83690; 83735; 83880; 84100; 84436; 84479; 84484; 85025; 85610; 85730; 93005; 93017; 96374; 96376; A9500; A9505; J1650; J1815; J2785; J7030; J7040